=== PATIENT | male | born 1975 | race Caucasian/White ===

== ENCOUNTER 2019-05-08 09:04 | Day surgery (SDC) | payer OTHER ==
[~2019-05-08 09:04] MED LIST: Acetaminophen TAB* 325 MG PO ONE; Buffered Lidocaine 1% SYRIN* 1 ML/SYRINGE INTRADERM ONE; Lactated Ringers 1000 ML Bag* 1,000 ML IV SCH
[2019-05-08] MEDS ORDERED: Acetaminophen TAB* 325 MG ONE (09:24)
[2019-05-08] MEDS ORDERED: Buffered Lidocaine 1% SYRIN* 1 ML/SYRINGE INTRADERM ONE (09:24)
[2019-05-08] MEDS ORDERED: ceFAZolin 2 GM PREMIX in ORs 2 GM/50 ML BAG ONE (09:24)
[2019-05-08] MEDS ORDERED: Midazolam* 1 MG/ML 2 ML VIAL (2 MG) ONE (10:15)
[2019-05-08] MEDS ORDERED: fentaNYL* 50 MCG/ML 5 ML VIAL (250 MCG VIAL) ONE (10:15)
[2019-05-08] MEDS ORDERED: Rocuronium* 10 MG/ML VIAL ONE ×2 (10:15→13:28)
[2019-05-08] MEDS ORDERED: Glycopyrrolate IV* 0.2 MG/ML 1 ML VIAL ONE ×2 (10:24→14:00)
[2019-05-08] MEDS ORDERED: Neostigmine Methylsulfate* 3 MG/3 ML SYRINGE ONE ×2 (10:24→14:00)
[2019-05-08] MEDS ORDERED: Bupivacaine 0.5% W/EPI SDV* 30 ML VIAL ONE (10:49)
[2019-05-08] MEDS ORDERED: Dexamethasone IV* 4 MG/ML 1 ML (4 MG) ONE (11:26)
[2019-05-08] MEDS ORDERED: Ketorolac INJ* 30 MG/ML 1 ML VIAL ONE (11:26)
[2019-05-08] MEDS ORDERED: Ondansetron INJ* 2 MG/ML VIAL ONE (11:26)
[2019-05-08] MEDS ORDERED: diPHENhydraMINE IV* 50 MG/ML 1 ml VIAL (BENADRYL) IV PRN (11:36)
[2019-05-08] MEDS ORDERED: HYDROmorphone INJ1* 1 MG/ML SYRINGE IV PRN (11:36)
[2019-05-08] MEDS ORDERED: PROCHLORPERAZINE INJ 5 MG/ML 2 ML VIAL IV PRN (11:36)
[2019-05-08] MEDS ORDERED: oxyCODONE TAB* 5 MG TAB PO PRN (11:36)
[2019-05-08] MEDS ORDERED: Naloxone* 0.4 MG/ML 1 ML VIAL IV PRN (11:36)
[2019-05-08] MEDS ORDERED: HYDROmorphone INJ1* 1 MG/ML SYRINGE ONE (11:42)
--- NOTE | 2019-05-08 14:07 | BRIEFOPN ---
Brief Operative/Procedure Note - Operation Details Pre-Op Diagnosis: recurrent right inguinal hernia Post-Op Diagnosis: same (direct) Procedures: laparoscopic repair right inguinal hernia w/ mesh. postoperative cystogram to r/o bladder injury Surgeon(s)/Proceduralists: Denise. Assist: VANE Garcia Anesthesia: GET. Fluids: 1400 ml Estimated Blood Loss: none Findings: as above; bladder diverticulum? (see postoperative cystogram) Specimen(s)/Culture(s) Description: none Complications: none (pending cystogram)
[2019-05-08] MEDS ORDERED: PROCHLORPERAZINE INJ 5 MG/ML 2 ML VIAL ONE (15:50)
[2019-05-08 16:29] VITALS: BP 135/93
--- NOTE | 2019-05-09 03:43 | OP ---
CC: Dr. Estrella, [facility] * DATE OF OPERATION: 05/08/19 - [facility] DATE OF : 75 SURGEON: Giacomo Walker MD EXAMINER OF CURRENCY: VANE Chavis ANESTHESIOLOGIST: Dr. Washington. ANESTHESIA: General with local. PRE-OP DIAGNOSIS: Recurrent right inguinal hernia. POST-OP DIAGNOSIS: Recurrent right direct inguinal hernia. OPERATIVE PROCEDURE: Laparoscopic repair with mesh of a right direct inguinal hernia, diagnostic laparoscopy at the completion of case. ESTIMATED BLOOD LOSS: Not recorded but was minimal. IV FLUIDS: 1 L of crystalloid. SPECIMENS: None. WOUND CLASSIFICATION: I. COMPLICATIONS: None. BRIEF HISTORY: Mr. Chantell Aguilera is a 44-year-old gentleman who had a right inguinal hernia repair many [place] ago at another city through an open technique. More recently over the past several years, she has developed rather large recurrent right inguinal hernia causing him discomfort and protruding up into the upper portion of the scrotum. He is now to undergo an elective repair with a laparoscope. FINDINGS: The patient had a rather large direct space hernia, which contained apparently large amount of preperitoneal fat with concern the possibility that this was a bladder diverticulum or bladder. Also, there was previously placed mesh plug in the indirect space, which was very adherent to the umkumiut peritoneum, but there was no evidence of recurrent indirect hernia and this was not dissected free. Postoperatively, a cystogram was also performed to rule out any bladder injury and this was unremarkable with no evidence of leak or other abnormality. DESCRIPTION OF PROCEDURE: Written informed consent was obtained, the right groin was marked with indelible ink and preoperative antibiotics were administered. The patient was taken to the operating room and placed in the supine position. Sequential compression devices and a warming blanket were applied. General anesthesia was administered and a Thurston catheter was inserted. The abdomen and both groins were prepped and draped in the usual sterile fashion. Time-out verification was completed. Initially, small transverse incision was made at the midline just below the umbilicus and slightly to the left and carried down to the anterior rectus sheath. This was divided transversely and the muscles retracted laterally to expose the posterior sheath. Disk space was then developed bluntly when the Spacemaker balloon was inserted carefully down until it opposed the pubic tubercle. The hand pump was then used under direct vision to insufflate the balloon without difficulty to develop the extraperitoneal space under direct vision. The balloon was then removed and a 12-mm blunt port was inserted in the extraperitoneal space and this was insufflated to 12 mmHg and the patient was placed in Trendelenburg position. Under direct vision, two 5 mm ports were placed in the midline inferior to the 12- mm port. Dissection commenced at the pubic tubercle medially as well as the Santhosh's ligament on to the left as well as to the right. It appeared that there was a rather large direct space hernia with containing fat or peritoneum. We moved more laterally to identify the epigastric vessels as they were usually coursing up over the anterior abdominal wall. More laterally, the abdominal wall and the iliopubic tract were identified through the adventitial tissue on to the iliac crest. Moving more medially, we identified the peritoneal reflection. This was extended to previously placed mesh, and this appeared to be a mesh plug that was into the internal ring and the peritoneum was extremely adherent over fairly large surface area and in an attempt to try to remove this, I did make a rent into the peritoneum exposing the peritoneal cavity. This did give us the opportunity to evaluate the indirect space transperitoneally and there was no evidence of indirect inguinal hernia recurrence and the mesh plug was in good position. Due to the size of the peritoneal rent, however, I did place a Veress needle in the left upper quadrant to decompress the abdominal cavity and this was left open throughout the remainder of the case to assure adequate exposure. Then moved more medially to identify what appeared to be the large direct hernia. Here, there was what appeared to be a large amount of preperitoneal fat and I was able to reduce this. It was difficult to determine if there was actually peritoneal component of this but it did not appear to be so and there was concern that this may have well represented bladder or a bladder diverticulum and once I reduced this with some difficulty to assure myself that there was no bladder reinjury, we did inflate the bladder with about 500 to 600 cc of saline but it maintained its distention with no obvious extraperitoneal or intraperitoneal leak. His urine remained clear throughout the remainder of the case and the bladder was emptied. Once this was complete, we were able to identify the large direct space hernia and decision was made to not attempt to try to excise the peritoneum that was laterally adherent to the mesh as described and a 10 cm x 15 cm piece of ProGrip Bard mesh was then placed to cover the direct space and generously crush the midline to the left into the anterior abdominal wall medial and lateral to the epigastric vessels. We relayed this over the peritoneal reflection that was adherent to the mesh and this seemed to be covered nicely the direct space to repair the hernia. The mesh extended laterally almost out to the iliac crest on the anterior abdominal wall as well. The peritoneal rent was then closed with 5 mm clips completely without difficulty. The retroperitoneum was then desufflated under direct vision and all ports were removed. We then opened the peritoneum at the umbilicus and insufflated to approximately 15 mmHg. I evaluated the area where the Veress needle was placed that there was no bowel injury and this was removed. Careful evaluation of the inguinal area showed the tacks closing the peritoneum completely with no exposed mesh. There was no evidence of an indirect inguinal hernia and the mesh covered nicely in the direct space and no evidence of fluid or blood. Ports were removed and the peritoneum was closed with a running 0 Vicryl suture. The anterior rectus fascia was closed with interrupted 0 Vicryl suture. The skin at all 3 incisions was approximated with subcuticular 4-0 Vicryl suture. Steri- Strips were applied. The patient tolerated the procedure well and was taken to the recovery room in stable condition. [id number] #: [id number] CHRISTOPHER
== END 2019-05-08 16:31 | disposition home or self-care (01) ==
LOC: OR 09:04
PROVIDERS: ATTEND Surgery
DX: K40.91 Unilateral inguinal hernia, without obstruction or gangrene, recurrent (principal); Z87.891 Personal history of nicotine dependence
CPT/HCPCS: 51600; 74430; A9270-GY; C1781; J0690; J0780; J1100; J1170; J1885; J2250; J2405; J2710; J3010